=== PATIENT | female | born 1995 | race Two or more races ===

== ENCOUNTER → 2021-04-16 | Outpatient (CLI) | payer MEDICAID, OTHER ==
[2015-08-27 15:30] VITALS: BP 92/48
[~2021-04-16] MED LIST: DOCU-109 PO; FAMO-63 PO; IBUP-1060 PO; OXYC1TAB15 PO; PNV1TABL25 PO
--- NOTE | 2021-04-17 11:18 | RAD ---
Clinical indications: Encounter for normal . COMPARISON: None available. Findings: A single intrauterine fetus is seen in variable position. heart rate is 157 beats per minute. BPD is 2.99 cm which equals 15 weeks 3 days. HC is 11.37 cm which equals 15 weeks 4 days. AC is 9.98 cm which equals 16 weeks 0 days. FL is 1.72 cm which equals 15 weeks 1 day. Average gestational age by ultrasound is 15 weeks 4 days +/- 10 days with an EDC of October 04, 2021 . Estimated weight is 0 lbs and 5 oz. anatomy is not evaluated due to the young gestational age. Normal amount of amniotic fluid is apparent. Cervical length is 6.3 cm. The placenta appears to be developing anteriorly. The maternal ovaries were not evaluated. Impression: Single IUP with gestational age of 15 weeks 4 days. Electronically signed by: Paulo Langford MD (04/17/2021 11:15 AM) [id number]
== END ==
LOC: US 14:52
PROVIDERS: ATTEND Obstetrics & Gynecology
DX: Z34.92 Encounter for supervision of normal pregnancy, unspecified, second trimester (principal); Z3A.15 15 weeks gestation of pregnancy
CPT/HCPCS: 76805

== ENCOUNTER → 2021-05-10 | Outpatient (CLI) | payer MEDICAID ==
[2015-08-27 15:30] VITALS: BP 92/48
[~2021-05-10] MED LIST changes: +CEPH500C PO
--- NOTE | 2021-05-10 11:55 | RAD ---
EXAM: OB ULTRASOUND, > 14 WEEKS HISTORY: anatomy survey. COMPARISON: 04/16/2021 TECHNIQUE: Multiple grayscale images, color Doppler, and M-mode images of the uterus are obtained. FINDINGS: There is a single intrauterine gestation in cephalic presentation. The placenta is grade 1 and anteri or in location without evidence of placenta previa. The amount of amniotic fluid appears appropriate. The anatomic fluid volume is grossly normal. Cervical length is 4.7 cm. Biometrical data: BPD = 4.45 cm for 19 weeks 3 days. HC = 16.63 cm for 19 weeks 2 days. AC = 13.54 cm for 19 weeks 0 days. FL = 3.18 cm for 19 weeks 6 days. HC/AC ratio = 1.23. Overall, the estimated sonographic gestational age is 19 weeks and 3 days for an estimated date of de livery of 10/01/2021. The estimated date of delivery provided by the last menstrual period is 2. Estimated weight is 291 grams. A 4 chamber heart is identified with positive cardiac activity. The estimated heart rate is 143 beats per minute. Bilateral upper and lower extremities are identified. There is a three-vessel cord with cord insertion visualized. stomach and urinary bladder are identified. Both kidneys are seen. The spine and brain are unremarkable. No obvious anatomic abnormalities are identified. The maternal adnexal regions are unremarkable. IMPRESSION: 1. Single intrauterine fetus with normal heart rate and gestational age patient also measurements of 19 weeks and 3 days. The estimated gestational age based on LMP is 20 weeks and 2 days. 2. Unremarkable anatomy survey. Electronically signed by: Rachel Sheth MD (05/10/2021 11:53 AM) [id number]
== END ==
LOC: US 11:05
PROVIDERS: ATTEND Obstetrics & Gynecology
DX: Z34.92 Encounter for supervision of normal pregnancy, unspecified, second trimester (principal); Z3A.20 20 weeks gestation of pregnancy
CPT/HCPCS: 76805

== ENCOUNTER 2021-05-14 09:02 | Emergency (ER) | payer MEDICAID ==
[~2021-05-14] VITALS: Ht 162.6 cm; Wt 93.0 kg
[~2021-05-14 09:02] MED LIST changes: -CEPH500C PO
[2021-05-14 09:35] VITALS: BP 187/73
--- NOTE | 2021-05-14 10:25 | PHYS DOC ---
Past Medical History Past Medical History: No Pertinent History, Other (DARION TERRY) Past Surgical History: No Surgical History, Other (DARION TERRY) Smoking Status: Never Smoker Alcohol Use: None Drug Use: None (DARION TERRY) General Adult EDM: Chief Complaint: VAGINAL PROBLEM HPI: HPI: Patient is a 25 year old A0 female who presents with a small hardened lesion to the right side labia. Patient states she first noticed the "hard pimple" 3 to 4 days ago. Yesterday, the patient was a pumpkin patch field trip with her daughter and walking around a lot. She states the bump got irritated and is now painful and "3 times" the size of it was a few days ago. Patient states she is 21 weeks . She reports feeling flutter-like movement. Patient denies abdominal pain, N/V/D, pelvic pain, dysuria, hematuria and any vaginal discharge. Patient states that she has been monogamous with her current sexual partner for 3 years. Patient has no other complaints at this time. (DARION TERRY) Review of Systems: Review of Systems: Constitutional: Denies fever or chills. Respiratory: Denies cough or shortness of breath. Cardiovascular: Denies chest pain or edema. GI: See HPI : See HPI Musculoskeletal: Denies back pain or joint pain. Integument: Denies rash, abrasion or laceration. (DARION TERRY) Heart Score: C/O Chest Pain: No (DARION TERRY) Allergies: Allergies: Allergies Coded Allergies Type Severity Reaction Last Updated Verified No Known Drug Allergies 02/28/15 No (DARION TERRY) Physical Exam: PE: Constitutional: Well developed, well nourished, no acute distress, non-toxic appearance. Cardiovascular:Heart rate regular rhythm, no murmur. Lungs & Thorax: Bilateral breath sounds clear to auscultation. Abdomen: Bowel sounds normal, soft, no tenderness, no masses, no pulsatile masses. : Mons pubis without lesions. Appropriate and symmetrical hair growth pattern. Labia majora without lesion or erythema. Right labia minora has a 8 mm x 3 mm hardened raised lesion. There is no erythema or rash bilaterally. Minimal amount of white nonmalodorous discharge noted at the introitus. Skin: Warm, dry, no erythema, no rash. Neurologic: Alert and oriented x3, normal motor function, normal sensory function, no focal deficits noted. (DARION TERRY) Current Patient Data: Vital Signs: Vital Signs Date Time Temp Pulse Resp B/P (MAP) Pulse Ox O2 Delivery O2 Flow Rate FiO2 05/14/21 09:35 98.7 87 16 187/73 (111) 98 Room Air 98.7 heart rate 160 (DARION TERRY) Course & Med Decision Making: Course & Med Decision Making Pertinent Labs and Imaging studies reviewed. (See chart for details) exam we will evaluate the heart and lesion that is causing the patient's discomfort. UA and wet prep will also be ordered. STI testing was discussed with the patient, but she has deferred. Right labia minora appears to have a hardened cyst that is not fluctuant or erythematous at this time. Patient will be treated with a 5-day course of Keflex and instructed to follow-up with her INCIDENT RESPONSE ANALYST in the next week. Patient is instructed to return to emergency department if she experiences increased discomfort or develops fever or purulent discharge. (DARION TERRY) Course & Med Decision Making I have reviewed and was available for consultation in the emergency department for this patient that was seen by midlevel provider. Agree with plan. Amos Ramirez DO (AMOS RAMIREZ DO) Helio Disclaimer: Helio Disclaimer: This electronic medical record was generated, in whole or in part, using a voice recognition dictation system. (DARION TERRY) Departure Departure Impression: Primary Impression: Vaginal cyst Additional Impression: Qualified Codes: Z3A.21 - 21 weeks gestation of Disposition: HOME / SELF CARE / HOMELESS Condition: STABLE Referrals: BENJAMIN VILLA MD (PCP) Patient Instructions: ABCs of , - Second Trimester, [id number] Additional Instructions: Typically, vaginal cysts like the one you have today do not require further treatment. However, you are provided with a prescription for antibiotics to prevent any infection and abscess. As discussed, please follow-up with your INCIDENT RESPONSE ANALYST for further evaluation and follow-up on cyst healing. Please return to emergency department if your pain worsens, if you develop a fever or increased discharge. You will receive a phone call should your lab work show any infection. Scripts Cephalexin (KEFLEX) 500 Mg Capsule 1 CAP PO BID for 5 Days, #10 CAP Please take full course of antibiotics. Prov: DARION TERRY 05/14/21 DARION TERRY May 14, 2021 10:25 AMOS RAMIREZ DO May 14, 2021 16:02
[2021-05-14] MEDS ORDERED: CEPH500C PO ×2 (11:04→11:40)
[2021-05-14 11:09] LABS: BILIRUBIN,URINE NEGATIVE (NEG); CLARITY,URINE CLEAR; COLOR,URINE YELLOW; NITRITE,URINE NEGATIVE (NEG); PROTEIN,URINE NEGATIVE (NEG-TRACE)
[2021-05-14 11:28] LABS: BACTERIA,URINE MODERATE /HPF (0-FEW); RBC,URINE OCC /HPF (0-2)
== END 2021-05-14 11:40 | disposition home or self-care (01) ==
LOC: ER 09:02
DX: O23.592 Infection of other part of genital tract in pregnancy, second trimester (principal); N89.8 Other specified noninflammatory disorders of vagina; Z3A.21 21 weeks gestation of pregnancy
CPT/HCPCS: 81001; 87086; 99284; Q0111; 99283